=== PATIENT | female | born 1990 | race African-American/Black ===

== ENCOUNTER 2022-08-21 10:38 | Emergency (ER) | payer MEDICAID ==
[~2022-08-21] VITALS: Ht 157.5 cm; Wt 62.7 kg
[2022-08-21 10:41] VITALS: BP 104/53
[2022-08-21] MEDS ORDERED: PRED-554 PO (13:45)
[2022-08-21] MEDS ORDERED: DIPH25CA85 PO (13:46)
== END 2022-08-21 13:54 | disposition home or self-care (01) ==
LOC: EMS 10:38
DX: L53.8 Other specified erythematous conditions (principal)
CPT/HCPCS: 99283; Z7502